=== PATIENT | male | born 1945 ===

== ENCOUNTER 2017-05-11 10:38 | Outpatient (CLI) | payer OTHER | END 2017-05-11 10:39 | disposition home or self-care (01) | LOC: SC 10:38 | PROVIDERS: ATTEND Specialist | DX: G47.33 Obstructive sleep apnea (adult) (pediatric) (principal) | CPT/HCPCS: 99205; 99212 ==

== ENCOUNTER 2017-05-30 19:20 | Outpatient (CLI) | payer OTHER | END 2017-05-30 19:21 | disposition home or self-care (01) | LOC: SC 19:20 | PROVIDERS: ATTEND Specialist | DX: G47.33 Obstructive sleep apnea (adult) (pediatric) (principal) | CPT/HCPCS: 95810 ==

== ENCOUNTER 2017-07-06 10:31 | Outpatient (CLI) | payer OTHER | END 2017-07-06 10:32 | disposition home or self-care (01) | LOC: SC 10:31 | PROVIDERS: ATTEND Internal Medicine Pulmonary Disease | DX: G47.33 Obstructive sleep apnea (adult) (pediatric) (principal) | CPT/HCPCS: 99212; 99213 ==